=== PATIENT | male | born 1960 | race Caucasian/White ===

== ENCOUNTER 2021-08-05 18:12 | Emergency (ER) | payer MEDICARE, OTHER ==
[~2021-08-05] VITALS: Ht 175.3 cm; Wt 77.1 kg
[2021-08-05 18:55] VITALS: BP 149/106
[2021-08-05 19:32] LABS: Basophils # (auto) 0.1 10 ^3/uL (0-0.2); Basophils % (auto) 1.1 % (0.0-2.0); Eosinophils # (auto) 0 10 ^3/uL (0-0.8); Eosinophils % (auto) 0.5 % (0.0-7.0); Hematocrit 44.1 % (41.0-53.0); Hemoglobin 14.7 g/dL (13.5-17.5); Lymphocytes # (auto) 1.7 10 ^3/uL (0.4-5.4); Lymphocytes % (auto) 22.2 % (10.0-50.0); Mean Corpuscular Hemoglobin 31.2 pg (28.0-32.0); Mean Corpuscular Hgb Conc. 33.3 g/dL (32.0-36.0); Mean Corpuscular Volume 93.7 fL (80.0-100.0); Monocytes % (auto) 12.5 % (0.0-12.0); Neutrophils # (auto) 4.9 10 ^3/uL (1.6-8.6); Neutrophils % (auto) 63.7 % (37.0-80.0); Red Blood Cells 4.71 10^6/uL (4.5-5.90); Red Cell Distribution Width 18.5 % (11.8-14.3); White Blood Cell 7.6 10^3/uL (4.4-10.8)
[2021-08-05 19:52] LABS: Albumin 3.3 g/dL (3.4-5.0); BUN/Creatinine Ratio 15.4; Calcium 8.2 mg/dL (8.5-10.1); Potassium 3.3 mmol/L (3.5-5.1)
[2021-08-05 19:58] LABS: Bilirubin, Total 0.5 mg/dL (0.2-1.0); Total Protein 6.9 g/dL (6.4-8.2)
[2021-08-06] MEDS ORDERED: POTA10TA51 PO (06:47)
[2021-08-06] MEDS ORDERED: OMEP20TA PO (06:47)
[2021-08-06] MEDS ORDERED: OXY5T PO (06:47)
[2021-08-06] MEDS ORDERED: MORP15TA PO (06:47)
[2021-08-06] MEDS ORDERED: HYDR25TA4 PO (06:47)
== END 2021-08-06 00:16 | disposition left against medical advice (07) ==
LOC: EDBD 18:12 → ER 18:18
DX: R07.89 Other chest pain (principal); K59.00 Constipation, unspecified; Z53.21 Procedure and treatment not carried out due to patient leaving prior to being seen by health care provider
CPT/HCPCS: 36415; 71045; 80053; 83735; 84443; 84484; 85025; 93005

== ENCOUNTER 2021-08-05 21:43 | Inpatient (IN) | payer MEDICARE, OTHER ==
[~2021-08-05] VITALS: Ht 172.7 cm; Wt 68.3 kg
[2021-08-05 23:32] LABS: Basophils # (auto) 0 10 ^3/uL (0-0.2); Basophils % (auto) 0.2 % (0.0-2.0); Eosinophils # (auto) 0 10 ^3/uL (0-0.8); Eosinophils % (auto) 0.4 % (0.0-7.0); Hematocrit 42.2 % (41.0-53.0); Hemoglobin 14.1 g/dL (13.5-17.5); Lymphocytes # (auto) 1.5 10 ^3/uL (0.4-5.4); Lymphocytes % (auto) 22.9 % (10.0-50.0); Mean Corpuscular Hemoglobin 31.2 pg (28.0-32.0); Mean Corpuscular Hgb Conc. 33.4 g/dL (32.0-36.0); Mean Corpuscular Volume 93.3 fL (80.0-100.0); Monocytes # (auto) 0.8 10 ^3/uL (0-1.3); Monocytes % (auto) 12.1 % (0.0-12.0); Neutrophils # (auto) 4.3 10 ^3/uL (1.6-8.6); Neutrophils % (auto) 64.4 % (37.0-80.0); Nucleated Red Blood Cells % 0.1 %; Red Blood Cells 4.53 10^6/uL (4.5-5.90); Red Cell Distribution Width 18.2 % (11.8-14.3); White Blood Cell 6.8 10^3/uL (4.4-10.8)
[2021-08-05 23:54] LABS: Albumin 3.1 g/dL (3.4-5.0); Calcium 8.1 mg/dL (8.5-10.1); Potassium 3.4 mmol/L (3.5-5.1)
[2021-08-05 23:56] LABS: BUN/Creatinine Ratio 16.7
[2021-08-06 00:01] LABS: Bilirubin, Total 0.5 mg/dL (0.2-1.0); Total Protein 6.6 g/dL (6.4-8.2)
[2021-08-06] MEDS ORDERED: LIDOCAINE 5% TOPICAL PATCH TOP ONE (01:15)
[2021-08-06] MEDS ORDERED: oxyCODONE ER 10 MG TAB PO ONE (03:30)
[2021-08-06] MEDS ORDERED: hydrALAZINE HCL 20 MG/ML VL IV PRN (03:30)
[2021-08-06] MEDS ORDERED: ACETAMINOPHEN 325 MG TAB PO PRN (03:30)
[2021-08-06] MEDS ORDERED: POTASSIUM CHL 20 Meq TABLET PO ONE (03:30)
[2021-08-06] MEDS ORDERED: DOCUSATE SOD 100 MG CAP PO PRN (03:30)
[2021-08-06] MEDS ORDERED: MORPHINE SULFATE INJECTION 2 MG/ML SYRG IV PRN (04:15)
[2021-08-06] MEDS ORDERED: NITROGLYCERIN 0.4 MG SL TAB SL PRN (04:15)
[2021-08-06] MEDS: SODIUM CHLOR 0.9% PF (SALINE LOCK) 10ML VIAL/SYR IV SCH ×3 (06:20→22:19)
[2021-08-06] MEDS: MORPHINE SULFATE 4 MG/ML SYR/VIAL IV PRN ×4 (06:21→20:34)
[2021-08-06] MEDS: ONDANSETRON HCL 4 MG/2 ML VIAL IV PRN ×3 (06:26→20:34)
[2021-08-06 06:31] VITALS: BP 156/98
[2021-08-06] MEDS ORDERED: INFLUENZA QUAD 2021-2022 0.5 ML SYRG IM ONE (06:45)
[2021-08-06] MEDS ORDERED: POTA10TA51 PO (06:47)
[2021-08-06] MEDS ORDERED: OMEP20TA PO (06:47)
[2021-08-06] MEDS ORDERED: HYDR25TA4 PO (06:47)
[2021-08-06] MEDS ORDERED: OXY5T PO (06:47)
[2021-08-06] MEDS ORDERED: MORP15TA PO (06:47)
[2021-08-06 09:11] VITALS: BP 153/93
[2021-08-06] MEDS: FAMOTIDINE (10MG/ML) 2ML VL IV SCH ×2 (09:27→22:19)
[2021-08-06] MEDS: ASPirin 81 mg TAB PO SCH (09:27)
[2021-08-06] MEDS: ENOXAPARIN SOD 40 MG/0.4 ML SYRINGE SC SCH (09:27)
[2021-08-06 11:50] LABS: Basophils # (auto) 0.1 10 ^3/uL (0-0.2); Basophils % (auto) 1.3 % (0.0-2.0); Eosinophils # (auto) 0 10 ^3/uL (0-0.8); Eosinophils % (auto) 0.5 % (0.0-7.0); Hematocrit 40.9 % (41.0-53.0); Hemoglobin 13.9 g/dL (13.5-17.5); Lymphocytes % (auto) 16.9 % (10.0-50.0); Mean Corpuscular Hemoglobin 31.7 pg (28.0-32.0); Mean Corpuscular Volume 93.2 fL (80.0-100.0); Monocytes # (auto) 0.8 10 ^3/uL (0-1.3); Monocytes % (auto) 12.8 % (0.0-12.0); Neutrophils % (auto) 68.5 % (37.0-80.0); Nucleated Red Blood Cells % 0.1 %; Red Blood Cells 4.38 10^6/uL (4.5-5.90); Red Cell Distribution Width 18.6 % (11.8-14.3); White Blood Cell 5.9 10^3/uL (4.4-10.8)
[2021-08-06 12:05] LABS: Amphetamine Screen, Urine NEGATIVE (NEGATIVE); Barbiturate Scree,Urine NEGATIVE (NEGATIVE); Benzodiazephine Screen, Urine NEGATIVE (NEGATIVE); Cannabinoid Screen, Urine POSITIVE (NEGATIVE); Cocaine Screen, Urine NEGATIVE (NEGATIVE); Phencyclidine Screen, Urine NEGATIVE (NEGATIVE)
[2021-08-06 12:06] LABS: Potassium 3.6 mmol/L (3.5-5.1)
[2021-08-06 12:13] LABS: Albumin 3.4 g/dL (3.4-5.0); BUN/Creatinine Ratio 16.7; Bilirubin, Total 0.9 mg/dL (0.2-1.0); Calcium 8.4 mg/dL (8.5-10.1); Total Protein 6.7 g/dL (6.4-8.2)
[2021-08-06 12:13] LABS: Opiate Scree,Urine POSITIVE (NEGATIVE)
[2021-08-06 13:09] VITALS: BP 154/91
[2021-08-06] MEDS ORDERED: chlordiazePOXIDE HCL 5 MG CAP PO PRN (15:00)
[2021-08-06 17:00] VITALS: BP 168/95
[2021-08-06 22:00] VITALS: BP 158/83
[2021-08-06] MEDS: METOPROLOL TARTRATE 25 MG TAB PO SCH (22:20)
[2021-08-07] MEDS: MORPHINE SULFATE 4 MG/ML SYR/VIAL IV PRN ×5 (00:51→21:08)
[2021-08-07] MEDS: ONDANSETRON HCL 4 MG/2 ML VIAL IV PRN ×3 (00:51→21:08)
[2021-08-07 05:00] VITALS: BP 150/88
[2021-08-07] MEDS: SODIUM CHLOR 0.9% PF (SALINE LOCK) 10ML VIAL/SYR IV SCH ×3 (05:36→21:06)
[2021-08-07 06:38] LABS: Basophils # (auto) 0 10 ^3/uL (0-0.2); Basophils % (auto) 0.8 % (0.0-2.0); Eosinophils # (auto) 0.1 10 ^3/uL (0-0.8); Eosinophils % (auto) 1.3 % (0.0-7.0); Hematocrit 36.9 % (41.0-53.0); Hemoglobin 12.7 g/dL (13.5-17.5); Lymphocytes # (auto) 0.9 10 ^3/uL (0.4-5.4); Lymphocytes % (auto) 20.2 % (10.0-50.0); Mean Corpuscular Hemoglobin 32.4 pg (28.0-32.0); Mean Corpuscular Hgb Conc. 34.6 g/dL (32.0-36.0); Mean Corpuscular Volume 93.8 fL (80.0-100.0); Monocytes # (auto) 0.5 10 ^3/uL (0-1.3); Monocytes % (auto) 10.9 % (0.0-12.0); Neutrophils % (auto) 66.8 % (37.0-80.0); Red Blood Cells 3.93 10^6/uL (4.5-5.90); Red Cell Distribution Width 17.8 % (11.8-14.3); White Blood Cell 4.6 10^3/uL (4.4-10.8)
[2021-08-07 07:02] LABS: Potassium 3.7 mmol/L (3.5-5.1)
[2021-08-07 07:09] LABS: Albumin 2.8 g/dL (3.4-5.0); BUN/Creatinine Ratio 16.1; Bilirubin, Total 1.2 mg/dL (0.2-1.0); Calcium 8.2 mg/dL (8.5-10.1)
[2021-08-07 07:14] LABS: Cholesterol 254 mg/dL (< 200); HDL Cholesterol 185 mg/dL (40-59); LDL Cholesterol 48 mg/dL (< 100); Triglycerides 46 mg/dL (< 150)
[2021-08-07] MEDS: HYDROcodone-ACET 5/325MG TAB PO PRN (08:19)
[2021-08-07 08:41] LABS: Urine Bacteria FEW /hpf (None Seen); Urine Blood 2+ /uL (Negative); Urine Mucus FEW (None Seen); Urine Specific Gravity 1.017 (1.001-1.035); Urine WBC 304 /hpf (0 - 3)
[2021-08-07 09:00] VITALS: BP 147/91
[2021-08-07] MEDS: ASPirin 81 mg TAB PO SCH (09:24)
[2021-08-07] MEDS: FAMOTIDINE (10MG/ML) 2ML VL IV SCH ×2 (09:24→21:06)
[2021-08-07] MEDS: MULTIPLE VITAMINS W/ MINERALS TAB PO SCH (09:25)
[2021-08-07] MEDS: METOPROLOL TARTRATE 25 MG TAB PO SCH ×2 (09:25→21:07)
[2021-08-07] MEDS: LOSARTAN POTASSIUM 25 MG TAB PO SCH (09:25)
[2021-08-07] MEDS: ENOXAPARIN SOD 40 MG/0.4 ML SYRINGE SC SCH (09:26)
[2021-08-07 11:03] LABS: Folate (Folic Acid) 17.29 ng/mL (5.38-24)
[2021-08-07 13:46] LABS: Hepatitis A Ab IgM Negative
[2021-08-07 14:01] LABS: Hepatitis B Core IgM Negative
[2021-08-07 14:22] LABS: Hepatitis C Antibody Negative (Negative)
[2021-08-07 17:29] VITALS: BP 149/89
[2021-08-07 22:27] VITALS: BP 163/85
[2021-08-08] VITALS (9 sets, daily range): BP systolic 122–167; BP diastolic 79–112
[2021-08-08] MEDS: MORPHINE SULFATE 4 MG/ML SYR/VIAL IV PRN ×2 (01:19→05:46)
[2021-08-08] MEDS: ONDANSETRON HCL 4 MG/2 ML VIAL IV PRN ×2 (01:20→05:45)
[2021-08-08] MEDS: SODIUM CHLOR 0.9% PF (SALINE LOCK) 10ML VIAL/SYR IV SCH ×3 (05:44→22:25)
[2021-08-08 06:28] LABS: INR 0.97 (0.9-1.15); Partial Thromboplastin Time 29.8 sec (23.6-33.0)
[2021-08-08 06:34] LABS: Albumin 3.4 g/dL (3.4-5.0); Calcium 8.7 mg/dL (8.5-10.1); Potassium 3.3 mmol/L (3.5-5.1)
[2021-08-08 06:37] LABS: BUN/Creatinine Ratio 11.1; Bilirubin, Total 0.8 mg/dL (0.2-1.0); Total Protein 7.2 g/dL (6.4-8.2)
[2021-08-08] MEDS: HYDROcodone-ACET 5/325MG TAB PO PRN (09:19)
[2021-08-08] MEDS: FAMOTIDINE (10MG/ML) 2ML VL IV SCH ×2 (09:30→22:25)
[2021-08-08] MEDS: ASPirin 81 mg TAB PO SCH (09:31)
[2021-08-08] MEDS: MULTIPLE VITAMINS W/ MINERALS TAB PO SCH (09:32)
[2021-08-08] MEDS: ENOXAPARIN SOD 40 MG/0.4 ML SYRINGE SC SCH (09:33)
[2021-08-08] MEDS: METOPROLOL TARTRATE 25 MG TAB PO SCH ×2 (14:02→22:32)
[2021-08-08] MEDS: LOSARTAN POTASSIUM 25 MG TAB PO SCH (14:02)
[2021-08-08] MEDS ORDERED: LORazepam 2MG/ML-1ML VIAL IM ONE (14:21)
[2021-08-08] MEDS ORDERED: LORazepam 2MG/ML-1ML VIAL ONE (14:21)
[2021-08-08] MEDS ORDERED: LORazepam 2MG/ML-1ML VIAL IV ONE (14:21)
[2021-08-08] MEDS ORDERED: IODIXANOL 320MG/ML 100ML BTL IV ONE (15:04)
[2021-08-08] MEDS ORDERED: LIDOCAINE 2%HCL (LOCAL ANESTH.) INJ 20ML MDV ONE (15:04)
[2021-08-08] MEDS ORDERED: ANGIOMAX 250 MG VIAL IV ONE (15:11)
[2021-08-08] MEDS ORDERED: SODIUM CHL 0.9% 50 ML ONE (15:11)
[2021-08-08] MEDS ORDERED: fentaNYL CITRATE 100 MCG/2 ML VL ONE (15:11)
[2021-08-08] MEDS ORDERED: MIDAZOLAM HCL 2MG/2ML 2ml VIAL (1mg/ml) ONE (15:11)
[2021-08-08] MEDS ORDERED: diphenhdrAMINE HCL 50 MG/1 ML VL ONE (15:28)
[2021-08-08] MEDS ORDERED: FLUMAZENIL 0.1 MG/ML INJ 10ML MDV IV ONE (15:38)
[2021-08-08] MEDS ORDERED: HALOPERIDOL LACTATE 5 MG/ML INJ VIAL ONE (15:42)
[2021-08-08] MEDS ORDERED: HALOPERIDOL LACTATE 5 MG/ML INJ VIAL IM PRN (17:45)
[2021-08-08] MEDS ORDERED: cefTRIAXone 1GM/50ML D5W 50 ML IV ONE (18:30)
[2021-08-08] MEDS: LORazepam 2MG/ML-1ML VIAL IV PRN (19:49)
[2021-08-08] MEDS ORDERED: CIPROFLOXACIN HCL 500 MG TAB PO ONE (20:00)
[2021-08-09] MEDS: MORPHINE SULFATE 4 MG/ML SYR/VIAL IV PRN ×3 (01:09→23:11)
[2021-08-09] MEDS: ONDANSETRON HCL 4 MG/2 ML VIAL IV PRN (01:10)
[2021-08-09] MEDS: LORazepam 2MG/ML-1ML VIAL IV PRN (02:00)
[2021-08-09 05:00] VITALS: BP 155/81
[2021-08-09] MEDS: SODIUM CHLOR 0.9% PF (SALINE LOCK) 10ML VIAL/SYR IV SCH ×3 (05:20→22:19)
[2021-08-09 06:40] LABS: Potassium 3.3 mmol/L (3.5-5.1)
[2021-08-09 06:45] LABS: Albumin 2.8 g/dL (3.4-5.0); Bilirubin, Total 0.9 mg/dL (0.2-1.0); Calcium 8.6 mg/dL (8.5-10.1)
[2021-08-09 06:50] LABS: Total Protein 6.2 g/dL (6.4-8.2)
[2021-08-09 09:00] VITALS: BP 113/77
[2021-08-09] MEDS ORDERED: cefTRIAXone 1GM/50ML D5W 50 ML IV SCH (09:00)
[2021-08-09] MEDS: MULTIPLE VITAMINS W/ MINERALS TAB PO SCH (09:27)
[2021-08-09] MEDS: CIPROFLOXACIN HCL 500 MG TAB PO SCH ×2 (09:27→22:19)
[2021-08-09] MEDS: FAMOTIDINE (10MG/ML) 2ML VL IV SCH (09:28)
[2021-08-09] MEDS ORDERED: HALOPERIDOL LACTATE 5 MG/ML INJ VIAL IM ONE (10:15)
[2021-08-09] MEDS ORDERED: FLUMAZENIL 0.1 MG/ML INJ 10ML MDV IV ONE (10:15)
[2021-08-09] MEDS: ASPirin 81 mg TAB PO SCH (10:45)
[2021-08-09] MEDS: FOLIC ACID 1 MG TAB PO SCH (10:45)
[2021-08-09] MEDS: LOSARTAN POTASSIUM 25 MG TAB PO SCH (10:45)
[2021-08-09] MEDS: THIAMINE HCL 100 MG TAB PO SCH (10:45)
[2021-08-09] MEDS: METOPROLOL TARTRATE 25 MG TAB PO SCH ×2 (10:46→22:20)
[2021-08-09] MEDS: ENOXAPARIN SOD 40 MG/0.4 ML SYRINGE SC SCH (10:46)
[2021-08-09 13:00] VITALS: BP 154/86
[2021-08-09 17:00] VITALS: BP 136/72
[2021-08-09] MEDS: chlordiazePOXIDE HCL 25 MG CAP PO SCH ×2 (18:00→18:41)
[2021-08-09 22:00] VITALS: BP 109/87
[2021-08-10] MEDS: chlordiazePOXIDE HCL 25 MG CAP PO SCH ×4 (00:49→17:46)
[2021-08-10] MEDS: MORPHINE SULFATE 4 MG/ML SYR/VIAL IV PRN ×5 (04:35→22:16)
[2021-08-10 05:00] VITALS: BP 134/74
[2021-08-10] MEDS: SODIUM CHLOR 0.9% PF (SALINE LOCK) 10ML VIAL/SYR IV SCH ×3 (05:47→20:51)
[2021-08-10 06:19] LABS: Albumin 2.9 g/dL (3.4-5.0); BUN/Creatinine Ratio 16.7; Calcium 8.5 mg/dL (8.5-10.1); Potassium 3.3 mmol/L (3.5-5.1)
[2021-08-10 06:22] LABS: Bilirubin, Total 0.8 mg/dL (0.2-1.0); Total Protein 6.2 g/dL (6.4-8.2)
[2021-08-10 08:28] VITALS: BP 141/90
[2021-08-10] MEDS: FOLIC ACID 1 MG TAB PO SCH (08:55)
[2021-08-10] MEDS: ASPirin 81 mg TAB PO SCH (08:55)
[2021-08-10] MEDS: THIAMINE HCL 100 MG TAB PO SCH (08:56)
[2021-08-10] MEDS: CIPROFLOXACIN HCL 500 MG TAB PO SCH ×2 (08:56→20:51)
[2021-08-10] MEDS: LOSARTAN POTASSIUM 25 MG TAB PO SCH (08:57)
[2021-08-10] MEDS: METOPROLOL TARTRATE 25 MG TAB PO SCH ×2 (08:57→22:14)
[2021-08-10] MEDS: MULTIPLE VITAMINS W/ MINERALS TAB PO SCH (08:58)
[2021-08-10] MEDS: ENOXAPARIN SOD 40 MG/0.4 ML SYRINGE SC SCH (08:58)
[2021-08-10] MEDS ORDERED: traMADol HCL 50 MG TAB PO PRN (09:00)
[2021-08-10 13:00] VITALS: BP 137/82
[2021-08-10] MEDS: LORazepam 2MG/ML-1ML VIAL IV PRN (15:41)
[2021-08-10 16:22] VITALS: BP 132/76
[2021-08-10 21:57] VITALS: BP 142/88
[2021-08-11] MEDS: chlordiazePOXIDE HCL 25 MG CAP PO SCH ×3 (00:04→12:10)
[2021-08-11] MEDS: MORPHINE SULFATE 4 MG/ML SYR/VIAL IV PRN ×3 (02:11→13:00)
[2021-08-11 04:46] VITALS: BP 136/78
[2021-08-11] MEDS: SODIUM CHLOR 0.9% PF (SALINE LOCK) 10ML VIAL/SYR IV SCH ×2 (05:29→12:57)
[2021-08-11 06:28] LABS: Potassium 3.2 mmol/L (3.5-5.1)
[2021-08-11 06:46] LABS: Albumin 2.7 g/dL (3.4-5.0); BUN/Creatinine Ratio 20.7; Bilirubin, Total 0.5 mg/dL (0.2-1.0); Calcium 8.2 mg/dL (8.5-10.1)
[2021-08-11 07:00] LABS: Cholesterol 210 mg/dL (< 200)
[2021-08-11 07:04] LABS: HDL Cholesterol 122 mg/dL (40-59); LDL Cholesterol 64 mg/dL (< 100); Triglycerides 62 mg/dL (< 150)
[2021-08-11] MEDS: ASPirin 81 mg TAB PO SCH (08:02)
[2021-08-11] MEDS: THIAMINE HCL 100 MG TAB PO SCH (08:03)
[2021-08-11] MEDS: FOLIC ACID 1 MG TAB PO SCH (08:03)
[2021-08-11] MEDS: CIPROFLOXACIN HCL 500 MG TAB PO SCH (08:04)
[2021-08-11] MEDS: METOPROLOL TARTRATE 25 MG TAB PO SCH (08:07)
[2021-08-11] MEDS: MULTIPLE VITAMINS W/ MINERALS TAB PO SCH (08:08)
[2021-08-11 09:00] VITALS: BP 137/91
[2021-08-11] MEDS ORDERED: LOSARTAN POTASSIUM 25 MG TAB PO SCH (10:00)
[2021-08-11] MEDS ORDERED: FOLI1TAB6 PO (10:07)
[2021-08-11] MEDS ORDERED: CIP500T PO (10:07)
[2021-08-11] MEDS ORDERED: MET25T PO (10:07)
[2021-08-11] MEDS ORDERED: LOSA-69 PO (10:07)
[2021-08-11] MEDS ORDERED: ASPI1TAB20 PO (10:07)
[2021-08-11] MEDS: ENOXAPARIN SOD 40 MG/0.4 ML SYRINGE SC SCH (12:09)
[2021-08-11] MEDS ORDERED: POTASSIUM CHL 20 Meq TABLET PO ONE (12:30)
[2021-08-11 13:00] VITALS: BP 122/82
[2021-08-11] MEDS: ONDANSETRON HCL 4 MG/2 ML VIAL IV PRN (13:01)
[2021-08-11] MEDS ORDERED: PNEUMOCOCCAL VACC POLYS 25 MCG/0.5 ML VIAL IM ONE (13:30)
[2021-08-11 13:33] VITALS: BP 130/78
[2021-08-11] MEDS ORDERED: INFLUENZA QUAD 2021-2022 0.5 ML SYRG IM ONE (13:45)
== END 2021-08-11 15:22 | disposition home health service (06) | DRG 281 ==
LOC: EDBD 21:43 → ER 21:45 → TELE 08-06 04:08 → TELE-CENTR 08-06 05:24
PROVIDERS: ADMIT Nurse Practitioner Family; ATTEND Internal Medicine
PROC: 3E0234Z Introduction of Serum, Toxoid and Vaccine into Muscle, Percutaneous Approach (ICD-10-PCS; principal; 2021-08-11)
DX: I21.4 Non-ST elevation (NSTEMI) myocardial infarction (principal); F10.239 Alcohol dependence with withdrawal, unspecified; E87.0 Hyperosmolality and hypernatremia; N39.0 Urinary tract infection, site not specified; J98.11 Atelectasis; E87.6 Hypokalemia; I10 Essential (primary) hypertension; I70.0 Atherosclerosis of aorta; G89.29 Other chronic pain; M54.9 Dorsalgia, unspecified; E88.09 Other disorders of plasma-protein metabolism, not elsewhere classified; Z20.822 Contact with and (suspected) exposure to COVID-19; E78.5 Hyperlipidemia, unspecified; Z86.73 Personal history of transient ischemic attack (TIA), and cerebral infarction without residual deficits; Z23 Encounter for immunization; Z53.8 Procedure and treatment not carried out for other reasons; K76.0 Fatty (change of) liver, not elsewhere classified; Y90.1 Blood alcohol level of 20-39 mg/100 ml
CPT/HCPCS: 36415; 71045; 71250; 76705; 80053; 80061; 80074; 80307; 81001; 82306; 82607; 82746; 82962; 82977; 83735; 83880; 84443; 84484; 85025; 85610; 85730; 87040; 87086; 87088; 87186; 87426; 93005; 93306; 96374; 96375; 99152; G0378; J2250; J2405; J3490; Q9967

== ENCOUNTER 2021-08-11 21:06 | Inpatient (IN) | payer MEDICARE, OTHER ==
[~2021-08-11] VITALS: Ht 172.7 cm; Wt 72.8 kg
[~2021-08-11 21:06] MED LIST: ASPI1TAB20 PO; CIP500T PO; FOLI1TAB6 PO; HYDR25TA4 PO; LOSA-69 PO; MET25T PO; MORP15TA PO; OMEP20TA PO; OXY5T PO; POTA10TA51 PO
[2021-08-11] MEDS ORDERED: ONDANSETRON HCL 4 MG/2 ML VIAL IV ONE (21:45)
[2021-08-11] MEDS ORDERED: MORPHINE SULFATE 4 MG/ML SYR/VIAL IV ONE (21:45)
[2021-08-11 22:35] LABS: Basophils # (auto) 0 10 ^3/uL (0-0.2); Basophils % (auto) 0.6 % (0.0-2.0); Eosinophils # (auto) 0.1 10 ^3/uL (0-0.8); Eosinophils % (auto) 2.9 % (0.0-7.0); Hematocrit 34.6 % (41.0-53.0); Hemoglobin 11.8 g/dL (13.5-17.5); Lymphocytes # (auto) 0.5 10 ^3/uL (0.4-5.4); Mean Corpuscular Hemoglobin 32.2 pg (28.0-32.0); Mean Corpuscular Volume 94.5 fL (80.0-100.0); Monocytes # (auto) 0.8 10 ^3/uL (0-1.3); Monocytes % (auto) 17.7 % (0.0-12.0); Neutrophils % (auto) 66.8 % (37.0-80.0); Red Blood Cells 3.66 10^6/uL (4.5-5.90); Red Cell Distribution Width 17.5 % (11.8-14.3); White Blood Cell 4.6 10^3/uL (4.4-10.8)
[2021-08-11 22:53] LABS: Albumin 2.8 g/dL (3.4-5.0); Calcium 8.3 mg/dL (8.5-10.1); Magnesium 1.8 mg/dL (1.6-2.6); Potassium 3.5 mmol/L (3.5-5.1)
[2021-08-11 22:59] LABS: BUN/Creatinine Ratio 16.8; Bilirubin, Total 0.4 mg/dL (0.2-1.0)
[2021-08-11 23:00] LABS: Partial Thromboplastin Time 25.7 sec (23.6-33.0)
[2021-08-11] MEDS ORDERED: DOCUSATE SOD 100 MG CAP PO PRN (23:30)
[2021-08-11] MEDS ORDERED: MORPHINE SULFATE INJECTION 2 MG/ML SYRG IV PRN (23:30)
[2021-08-11] MEDS ORDERED: HYDROcodone-ACET 5/325MG TAB PO PRN (23:30)
[2021-08-11] MEDS ORDERED: ONDANSETRON HCL 4 MG/2 ML VIAL IV PRN (23:30)
[2021-08-11] MEDS ORDERED: ACETAMINOPHEN 325 MG TAB PO PRN (23:30)
[2021-08-12] MEDS: NITROGLYCERIN 0.4 MG SL TAB SL PRN (02:02)
[2021-08-12 02:25] LABS: Urine Bacteria FEW /hpf (None Seen); Urine Blood Negative /uL (Negative); Urine Hyaline Cast MANY /lpf (0 - 2); Urine Mucus FEW (None Seen); Urine Specific Gravity 1.021 (1.001-1.035); Urine WBC 6 /hpf (0 - 3)
[2021-08-12 03:47] VITALS: BP 113/81
[2021-08-12 05:00] VITALS: BP 113/81
[2021-08-12] MEDS: MORPHINE SULFATE 4 MG/ML SYR/VIAL IV PRN ×2 (06:39→11:11)
[2021-08-12 09:00] VITALS: BP 122/70
[2021-08-12] MEDS: FAMOTIDINE (10MG/ML) 2ML VL IV SCH (10:57)
[2021-08-12] MEDS: ASPirin 81 mg TAB PO SCH (10:58)
[2021-08-12] MEDS: HEPARIN SODIUM (PORCINE) 5000 UNITS/ML 1ML VIAL SC SCH ×2 (11:11→22:00)
[2021-08-12] MEDS: METOPROLOL TARTRATE 25 MG TAB PO SCH ×2 (11:12→23:08)
[2021-08-12 11:27] LABS: Hematocrit 33.8 % (41.0-53.0); Hemoglobin 11.4 g/dL (13.5-17.5); Mean Corpuscular Hemoglobin 32.4 pg (28.0-32.0); Mean Corpuscular Hgb Conc. 33.9 g/dL (32.0-36.0); Mean Corpuscular Volume 95.7 fL (80.0-100.0); Red Blood Cells 3.53 10^6/uL (4.5-5.90); Red Cell Distribution Width 17.8 % (11.8-14.3); White Blood Cell 3.4 10^3/uL (4.4-10.8)
[2021-08-12] MEDS ORDERED: traMADol HCL 50 MG TAB PO PRN ×4 (11:30→11:45)
[2021-08-12 11:33] LABS: Calcium 8.1 mg/dL (8.5-10.1); Potassium 3.6 mmol/L (3.5-5.1)
[2021-08-12 11:39] LABS: Basophils % (manual) 0 (0.0-2.0); Blast Cells 0; Metamyelocytes % 0; Myelocytes % 0; Promyelocytes % 0
[2021-08-12 11:42] LABS: Albumin 2.5 g/dL (3.4-5.0); BUN/Creatinine Ratio 19.1; Bilirubin, Total 0.4 mg/dL (0.2-1.0); Total Protein 5.5 g/dL (6.4-8.2)
[2021-08-12] MEDS ORDERED: ACETAMINOPHEN 325 MG TAB PO PRN ×2 (12:00→16:45)
[2021-08-12] MEDS ORDERED: IOHEXOL 350 MG/ML 100ML IJ ONE (12:23)
[2021-08-12 12:27] LABS: Band Neutrophils % (manual) 1; Eosinophils % (manual) 3 (0-7); Lymphocytes % (manual) 19 (10.0-50.0); Monocytes % (manual) 14 (0-12); Reactive Lymphocytes 1
[2021-08-12 13:00] VITALS: BP 127/75
[2021-08-12 17:00] VITALS: BP 149/86
[2021-08-12] MEDS: HYDROcodone-ACET 7.5/325MG TAB PO PRN ×2 (17:04→23:21)
[2021-08-12] MEDS ORDERED: ATORVASTATIN 20 MG TAB PO SCH (22:00)
[2021-08-12 22:08] VITALS: BP 114/71
[2021-08-13] MEDS: METOPROLOL TARTRATE 25 MG TAB PO SCH ×2 (00:08→10:11)
[2021-08-13 04:52] VITALS: BP 105/73
[2021-08-13 05:15] LABS: Hematocrit 34.4 % (41.0-53.0); Hemoglobin 11.5 g/dL (13.5-17.5); Mean Corpuscular Hemoglobin 31.9 pg (28.0-32.0); Mean Corpuscular Hgb Conc. 33.4 g/dL (32.0-36.0); Mean Corpuscular Volume 95.6 fL (80.0-100.0); Red Cell Distribution Width 17.8 % (11.8-14.3); White Blood Cell 3.2 10^3/uL (4.4-10.8)
[2021-08-13 05:17] LABS: Basophils % (manual) 0 (0.0-2.0); Blast Cells 0; Metamyelocytes % 0; Myelocytes % 0; Promyelocytes % 0; Reactive Lymphocytes 0
[2021-08-13 05:43] LABS: Albumin 2.7 g/dL (3.4-5.0); Calcium 8.6 mg/dL (8.5-10.1); Potassium 4.5 mmol/L (3.5-5.1)
[2021-08-13 05:47] LABS: BUN/Creatinine Ratio 17.5; Bilirubin, Total 0.3 mg/dL (0.2-1.0); Total Protein 5.7 g/dL (6.4-8.2)
[2021-08-13 06:00] LABS: INR 1.01 (0.9-1.15)
[2021-08-13 06:39] LABS: Band Neutrophils % (manual) 2; Eosinophils % (manual) 6 (0-7); Lymphocytes % (manual) 17 (10.0-50.0); Monocytes % (manual) 7 (0-12)
[2021-08-13 09:00] VITALS: BP 122/78
[2021-08-13] MEDS: FAMOTIDINE (10MG/ML) 2ML VL IV SCH (10:11)
[2021-08-13] MEDS: HYDROcodone-ACET 7.5/325MG TAB PO PRN ×2 (10:12→16:37)
[2021-08-13] MEDS: ASPirin 81 mg TAB PO SCH (10:12)
[2021-08-13] MEDS: HEPARIN SODIUM (PORCINE) 5000 UNITS/ML 1ML VIAL SC SCH ×2 (10:20→21:25)
[2021-08-13 12:00] VITALS: BP 125/77
[2021-08-13 16:00] VITALS: BP 109/73
[2021-08-13] MEDS: MORPHINE SULF 15mg ER tab PO SCH (18:42)
[2021-08-13 22:00] VITALS: BP 104/68
[2021-08-13] MEDS ORDERED: MORPHINE SULF 15mg ER tab PO SCH (22:00)
[2021-08-14 05:00] VITALS: BP 106/71
[2021-08-14 06:34] LABS: Basophils # (auto) 0 10 ^3/uL (0-0.2); Basophils % (auto) 1.5 % (0.0-2.0); Eosinophils # (auto) 0.2 10 ^3/uL (0-0.8); Eosinophils % (auto) 6.2 % (0.0-7.0); Hemoglobin 11.5 g/dL (13.5-17.5); Mean Corpuscular Hemoglobin 32.5 pg (28.0-32.0); Mean Corpuscular Hgb Conc. 33.8 g/dL (32.0-36.0); Mean Corpuscular Volume 96.1 fL (80.0-100.0); Nucleated Red Blood Cells % 0.1 %; Red Blood Cells 3.53 10^6/uL (4.5-5.90); Red Cell Distribution Width 17.9 % (11.8-14.3); White Blood Cell 3.1 10^3/uL (4.4-10.8)
[2021-08-14 06:51] LABS: Lymphocytes % (auto) 32.6 % (10.0-50.0); Monocytes # (auto) 0.4 10 ^3/uL (0-1.3); Monocytes % (auto) 17.7 % (0.0-12.0); Neutrophils # (auto) 1.4 10 ^3/uL (1.6-8.6)
[2021-08-14 08:00] VITALS: BP 128/90
[2021-08-14] MEDS: FAMOTIDINE (10MG/ML) 2ML VL IV SCH (10:11)
[2021-08-14] MEDS: ASPirin 81 mg TAB PO SCH (10:11)
[2021-08-14] MEDS: MORPHINE SULF 15mg ER tab PO SCH ×2 (10:11→21:42)
[2021-08-14] MEDS: HEPARIN SODIUM (PORCINE) 5000 UNITS/ML 1ML VIAL SC SCH ×2 (10:12→21:43)
[2021-08-14 12:00] VITALS: BP 151/80
[2021-08-14 12:15] LABS: Hepatitis B Surface Antibody Negative
[2021-08-14 12:39] LABS: Hepatitis A Total Antibody Negative
[2021-08-14 14:27] LABS: Hepatitis C Antibody Negative (Negative)
[2021-08-14 16:00] VITALS: BP 121/90
[2021-08-14] MEDS: METOPROLOL TARTRATE 25 MG TAB PO SCH (21:41)
[2021-08-14 22:00] VITALS: BP 134/71
[2021-08-15 05:00] VITALS: BP 128/76
[2021-08-15 08:59] VITALS: BP 158/82
[2021-08-15] MEDS: FAMOTIDINE (10MG/ML) 2ML VL IV SCH (10:07)
[2021-08-15] MEDS: ASPirin 81 mg TAB PO SCH (10:07)
[2021-08-15] MEDS: MORPHINE SULF 15mg ER tab PO SCH ×2 (10:08→21:49)
[2021-08-15] MEDS: METOPROLOL TARTRATE 25 MG TAB PO SCH ×2 (10:10→21:50)
[2021-08-15] MEDS: HEPARIN SODIUM (PORCINE) 5000 UNITS/ML 1ML VIAL SC SCH ×2 (11:28→21:54)
[2021-08-15] MEDS: FOLIC ACID 1 MG, MULTIPLE VITAMIN 10 ML, MAGNESIUM SULF SDV 50% 8 MEQ, THIAMINE INJ 100... INJ SCH ×5 (12:42)
[2021-08-15 12:48] VITALS: BP 104/62
[2021-08-15] MEDS ORDERED: LIDOCAINE 2%HCL (LOCAL ANESTH.) INJ 20ML MDV ONE (13:12)
[2021-08-15] MEDS ORDERED: IOHEXOL 350 MG/ML 100ML IJ ONE (13:12)
[2021-08-15] MEDS ORDERED: ANGIOMAX 250 MG VIAL IV ONE (13:13)
[2021-08-15] MEDS ORDERED: SODIUM CHL 0.9% 0 ML ONE (13:13)
[2021-08-15 16:59] VITALS: BP 127/78
[2021-08-15 22:00] VITALS: BP 114/77
[2021-08-16 05:00] VITALS: BP 128/72
[2021-08-16 06:00] LABS: Hematocrit 41.3 % (41.0-53.0); Hemoglobin 13.9 g/dL (13.5-17.5); Mean Corpuscular Hgb Conc. 33.7 g/dL (32.0-36.0); Mean Corpuscular Volume 95.1 fL (80.0-100.0); Red Blood Cells 4.34 10^6/uL (4.5-5.90); Red Cell Distribution Width 17.7 % (11.8-14.3)
[2021-08-16 06:07] LABS: Basophils % (manual) 0 (0.0-2.0); Blast Cells 0; Metamyelocytes % 0; Promyelocytes % 0
[2021-08-16 06:37] LABS: Albumin 3.5 g/dL (3.4-5.0); BUN/Creatinine Ratio 15.5; Bilirubin, Total 0.3 mg/dL (0.2-1.0); Calcium 9.2 mg/dL (8.5-10.1); Total Protein 6.9 g/dL (6.4-8.2)
[2021-08-16 08:30] LABS: Band Neutrophils % (manual) 1; Lymphocytes % (manual) 33 (10.0-50.0); Monocytes % (manual) 16 (0-12)
[2021-08-16 08:31] LABS: Eosinophils % (manual) 10 (0-7); Myelocytes % 1; Reactive Lymphocytes 3
[2021-08-16 09:00] VITALS: BP 120/90
[2021-08-16] MEDS: ASPirin 81 mg TAB PO SCH (09:47)
[2021-08-16] MEDS: METOPROLOL TARTRATE 25 MG TAB PO SCH ×2 (09:47→22:13)
[2021-08-16] MEDS: FAMOTIDINE (10MG/ML) 2ML VL IV SCH (09:47)
[2021-08-16] MEDS: MORPHINE SULF 15mg ER tab PO SCH ×2 (09:48→22:13)
[2021-08-16 13:00] VITALS: BP 112/66
[2021-08-16] MEDS: HEPARIN SODIUM (PORCINE) 5000 UNITS/ML 1ML VIAL SC SCH ×2 (13:12→22:17)
[2021-08-16 16:37] VITALS: BP 126/76
[2021-08-16] MEDS: FOLIC ACID 1 MG, MULTIPLE VITAMIN 10 ML, MAGNESIUM SULF SDV 50% 8 MEQ, THIAMINE INJ 100... INJ SCH ×5 (19:05)
[2021-08-16] MEDS: NITROGLYCERIN 0.4 MG SL TAB SL PRN ×3 (21:20→21:33)
[2021-08-16 21:56] VITALS: BP 120/87
[2021-08-17 04:57] VITALS: BP 130/75
[2021-08-17 08:59] VITALS: BP 107/83
[2021-08-17] MEDS: METOPROLOL TARTRATE 25 MG TAB PO SCH (10:04)
[2021-08-17] MEDS: FAMOTIDINE (10MG/ML) 2ML VL IV SCH (10:04)
[2021-08-17] MEDS: MORPHINE SULF 15mg ER tab PO SCH (10:04)
[2021-08-17] MEDS: ASPirin 81 mg TAB PO SCH (10:04)
[2021-08-17] MEDS: HEPARIN SODIUM (PORCINE) 5000 UNITS/ML 1ML VIAL SC SCH (10:05)
[2021-08-17 10:43] VITALS: BP 120/63
[2021-08-17] MEDS: FOLIC ACID 1 MG, MULTIPLE VITAMIN 10 ML, MAGNESIUM SULF SDV 50% 8 MEQ, THIAMINE INJ 100... INJ SCH ×5 (12:34)
[2021-08-17 13:00] VITALS: BP 110/72
== END 2021-08-17 13:00 | disposition home health service (06) | DRG 432 ==
LOC: EDBD 21:06 → ER 21:10 → TELE 23:16 → TELE-WESTW 08-12 03:47
PROVIDERS: ADMIT Nurse Practitioner Family; ATTEND Family Medicine
PROC: 4A023N7 Measurement of Cardiac Sampling and Pressure, Left Heart, Percutaneous Approach (ICD-10-PCS; principal; 2021-08-15)
PROC: B2111ZZ Fluoroscopy of Multiple Coronary Arteries using Low Osmolar Contrast (ICD-10-PCS; 2021-08-15)
PROC: B2151ZZ Fluoroscopy of Left Heart using Low Osmolar Contrast (ICD-10-PCS; 2021-08-15)
PROC: 4A033BC Measurement of Arterial Pressure, Coronary, Percutaneous Approach (ICD-10-PCS; 2021-08-15)
DX: K70.10 Alcoholic hepatitis without ascites (principal); I21.4 Non-ST elevation (NSTEMI) myocardial infarction; I50.21 Acute systolic (congestive) heart failure; I11.0 Hypertensive heart disease with heart failure; K76.0 Fatty (change of) liver, not elsewhere classified; F10.10 Alcohol abuse, uncomplicated; I25.119 Atherosclerotic heart disease of native coronary artery with unspecified angina pectoris; E88.09 Other disorders of plasma-protein metabolism, not elsewhere classified; R79.89 Other specified abnormal findings of blood chemistry; E78.5 Hyperlipidemia, unspecified; Z20.822 Contact with and (suspected) exposure to COVID-19; Z82.49 Family history of ischemic heart disease and other diseases of the circulatory system; Z83.3 Family history of diabetes mellitus; Z86.73 Personal history of transient ischemic attack (TIA), and cerebral infarction without residual deficits; Z91.19 Patient's noncompliance with other medical treatment and regimen; Z90.49 Acquired absence of other specified parts of digestive tract; Z71.41 Alcohol abuse counseling and surveillance of alcoholic; Z68.23 Body mass index [BMI] 23.0-23.9, adult
CPT/HCPCS: 36415; 71045; 71275; 73090; 80053; 81001; 82150; 82728; 83036; 83690; 83735; 83880; 84132; 84443; 84484; 85007; 85025; 85027; 85379; 85610; 85730; 86704; 86706; 86708; 86803; 87081; 87340; 87426; 93005; 93458; 93571; 96374; 96375; 96376; 97163; 99152; 99291; G0378; J2405; J3490

== ENCOUNTER 2023-08-08 10:56 | Inpatient (IN) | payer MEDICARE, OTHER ==
[~2023-08-08] VITALS: Ht 172.7 cm; Wt 75.2 kg
[~2023-08-08 10:56] MED LIST changes: +FOLI-119 PO; -FOLI1TAB6 PO; -LOSA-69 PO; +LOSA50TA46 PO; -POTA10TA51 PO
[2023-08-08 13:38] LABS: Basophils # (auto) 0 10 ^3/uL (0-0.2); Basophils % (auto) 0.2 % (0.0-2.0); Eosinophils # (auto) 0 10 ^3/uL (0-0.8); Eosinophils % (auto) 0.4 % (0.0-7.0); Hematocrit 40.8 % (41.0-53.0); Hemoglobin 13.4 g/dL (13.5-17.5); Lymphocytes # (auto) 0.8 10 ^3/uL (0.4-5.4); Lymphocytes % (auto) 11.4 % (10.0-50.0); Mean Corpuscular Hemoglobin 31.6 pg (28.0-32.0); Mean Corpuscular Hgb Conc. 32.8 g/dL (32.0-36.0); Mean Corpuscular Volume 96.3 fL (80.0-100.0); Monocytes # (auto) 0.8 10 ^3/uL (0-1.3); Monocytes % (auto) 11.4 % (0.0-12.0); Neutrophils # (auto) 5.7 10 ^3/uL (1.6-8.6); Neutrophils % (auto) 76.6 % (37.0-80.0); Nucleated Red Blood Cells % 0.1 %; Red Blood Cells 4.24 10^6/uL (4.5-5.90); Red Cell Distribution Width 16.4 % (11.8-14.3); White Blood Cell 7.4 10^3/uL (4.4-10.8)
[2023-08-08 13:59] LABS: Alanine Aminotransferase 60 U/L (7-40); Albumin 3.7 g/dL (3.2-4.8); Alkaline Phosphatase 84 U/L (46-116); Anion Gap 8 (5-15); Aspartate Aminotransferase 312 U/L (13-40); Blood Urea Nitrogen 19 mg/dL (9-23); Calcium 8.1 mg/dL (8.5-10.1); Carbon Dioxide 22 mmol/L (20-30); Chloride 110 mmol/L (98-107); Glucose 86 mg/dL (74-106); Potassium 3.9 mmol/L (3.5-5.1); Sodium 140 mmol/L (136-145)
[2023-08-08 14:00] LABS: Bilirubin, Total 0.4 mg/dL (0.2-1.0); Total Protein 5.7 g/dL (5.7-8.2)
[2023-08-08] MEDS ORDERED: HYDROcodone-ACET 10/325MG TAB PO ONE (14:30)
[2023-08-08] MEDS ORDERED: OXYC-998 PO (17:15)
[2023-08-08] MEDS ORDERED: HYDROcodone-ACET 5/325MG TAB PO PRN (17:15)
[2023-08-08] MEDS ORDERED: DOCUSATE SOD 100 MG CAP PO PRN (17:15)
[2023-08-08] MEDS ORDERED: OMEP1CAP70 PO (17:15)
[2023-08-08] MEDS ORDERED: ACETAMINOPHEN 325 MG TAB PO PRN (17:15)
[2023-08-08] MEDS ORDERED: MORP1TAB12 PO (17:15)
[2023-08-08 19:38] VITALS: RESP 14; O2SAT 97
[2023-08-08] MEDS: ONDANSETRON HCL 4 MG/2 ML VIAL IV PRN (20:35)
[2023-08-08] MEDS: MORPHINE SULFATE INJ 2 MG/ml SYRG IV PRN (20:36)
[2023-08-08 21:41] VITALS: BP 122/86; PULSE 76; PULSE 80; RESP 18; TEMP 98.6; O2SAT 96; O2SAT 97
[2023-08-08] MEDS ORDERED: MORPHINE SULF 15mg ER tab PO SCH (22:00)
[2023-08-08] MEDS ORDERED: PATIENTS OWN MEDICATION (Morphine Sulfate 1 TAB) PO SCH (22:00)
[2023-08-08] MEDS: PANTOPRAZOLE 40 MG TAB PO SCH (22:13)
[2023-08-08 22:18] LABS: Urine Bacteria NONE SEEN /hpf (None Seen); Urine Blood 3+ /uL (Negative); Urine Clarity Clear (Clear); Urine Color Yellow (Yellow); Urine Protein, UAD 1+ (Negative); Urine Specific Gravity 1.016 (1.001-1.035); Urine Urobilinogen Normal (Negative); Urine WBC 2 /hpf (0 - 3); Urine pH 6.5 (5.0-8.0)
[2023-08-08 22:19] LABS: Amphetamine Screen, Urine Neg (NEGATIVE); Barbiturate Scree,Urine Neg (NEGATIVE); Benzodiazephine Screen, Urine Neg (NEGATIVE); Cocaine Screen, Urine Neg (NEGATIVE); Opiate Scree,Urine Pos (NEGATIVE)
[2023-08-08 22:20] LABS: Cannabinoid Screen, Urine Pos (NEGATIVE); Phencyclidine Screen, Urine Neg (NEGATIVE)
[2023-08-09] MEDS ORDERED: INFLUENZA QUAD 2023-2024 0.5 ML SYRG IM ONE
[2023-08-09] MEDS ORDERED: PNEUMOCOCCAL VACC POLYS 25 MCG/0.5 ML VIAL IM ONE
[2023-08-09] MEDS: ONDANSETRON HCL 4 MG/2 ML VIAL IV PRN (00:43)
[2023-08-09] MEDS: MORPHINE SULFATE INJ 2 MG/ml SYRG IV PRN ×5 (00:44→20:07)
[2023-08-09 05:00] VITALS: BP 124/81; PULSE 65; RESP 17; TEMP 97.7; O2SAT 97
[2023-08-09 07:34] LABS: Alanine Aminotransferase 54 U/L (7-40); Alkaline Phosphatase 68 U/L (46-116); Anion Gap 9 (5-15); BUN/Creatinine Ratio 10.5 (10.0-20.0); Basophils # (auto) 0 10 ^3/uL (0-0.2); Basophils % (auto) 0.4 % (0.0-2.0); Blood Urea Nitrogen 10 mg/dL (9-23); Calcium 7.9 mg/dL (8.5-10.1); Carbon Dioxide 20 mmol/L (20-30); Chloride 108 mmol/L (98-107); Eosinophils # (auto) 0.1 10 ^3/uL (0-0.8); Eosinophils % (auto) 1.4 % (0.0-7.0); Glucose 123 mg/dL (74-106); Hematocrit 38.2 % (41.0-53.0); Hemoglobin 12.3 g/dL (13.5-17.5); Lymphocytes # (auto) 1.2 10 ^3/uL (0.4-5.4); Lymphocytes % (auto) 20.6 % (10.0-50.0); Mean Corpuscular Hgb Conc. 32.2 g/dL (32.0-36.0); Mean Corpuscular Volume 99.3 fL (80.0-100.0); Monocytes # (auto) 0.7 10 ^3/uL (0-1.3); Monocytes % (auto) 11.9 % (0.0-12.0); Neutrophils # (auto) 3.9 10 ^3/uL (1.6-8.6); Neutrophils % (auto) 65.7 % (37.0-80.0); Potassium 3.2 mmol/L (3.5-5.1); Red Blood Cells 3.85 10^6/uL (4.5-5.90); Red Cell Distribution Width 17.4 % (11.8-14.3); Sodium 137 mmol/L (136-145); White Blood Cell 5.9 10^3/uL (4.4-10.8)
[2023-08-09 07:35] LABS: Albumin 3.2 g/dL (3.2-4.8); Aspartate Aminotransferase 206 U/L (13-40); Bilirubin, Total 0.5 mg/dL (0.2-1.0); Total Protein 5.3 g/dL (5.7-8.2)
[2023-08-09 08:00] VITALS: BP 137/85; PULSE 67; RESP 18; TEMP 98.1; O2SAT 100
[2023-08-09] MEDS: PANTOPRAZOLE 40 MG TAB PO SCH (09:33)
[2023-08-09] MEDS ORDERED: PATIENTS OWN MEDICATION (Omeprazole (Gnp Omeprazole) 1 TAB) PO SCH (10:00)
[2023-08-09] MEDS ORDERED: OXYCODONE W/ ACETAMINOPHEN 5/325MG TABLET PO PRN (11:45)
[2023-08-09 12:00] VITALS: BP 122/76; PULSE 71; RESP 18; TEMP 98.9; O2SAT 99
[2023-08-09] MEDS ORDERED: LOSARTAN POTASSIUM 50 MG TAB PO ONE (12:15)
[2023-08-09] MEDS ORDERED: HCTZ 25 MG TAB PO ONE (12:15)
[2023-08-09] MEDS ORDERED: METOPROLOL TARTRATE 25 MG TAB PO ONE (12:15)
[2023-08-09] MEDS ORDERED: POTASSIUM CHL 20 Meq TABLET PO ONE (12:15)
[2023-08-09] MEDS ORDERED: PANTOPRAZOLE 40 MG TAB PO ONE (12:30)
[2023-08-09] MEDS: ENOXAPARIN SOD 40 MG/0.4 ML SYRINGE SC SCH (12:35)
[2023-08-09] MEDS ORDERED: ACETAMINOPHEN 325 MG TAB PO PRN ×2 (13:45→14:00)
[2023-08-09] MEDS ORDERED: oxyCODONE HCL 5MG TAB PO PRN ×3 (13:45→16:00)
[2023-08-09] MEDS ORDERED: MORPHINE SULFATE INJ 2 MG/ml SYRG IV PRN ×2 (15:30→16:30)
[2023-08-09 16:00] VITALS: BP 115/78; PULSE 68; RESP 16; TEMP 98.1; O2SAT 98
[2023-08-09 20:00] VITALS: RESP 18
[2023-08-09 22:00] VITALS: BP 135/83; PULSE 66; RESP 22; TEMP 97.8; O2SAT 96
[2023-08-09] MEDS: ACETAMINOPHEN 325 MG TAB PO PRN (22:04)
[2023-08-09] MEDS: oxyCODONE HCL 5MG TAB PO PRN (22:04)
[2023-08-09] MEDS: METOPROLOL TARTRATE 25 MG TAB PO SCH (22:04)
[2023-08-10] MEDS: MORPHINE SULFATE INJ 2 MG/ml SYRG IV PRN ×2 (00:26→09:38)
[2023-08-10 05:00] VITALS: BP 120/73; PULSE 54; RESP 20; TEMP 97.7; O2SAT 96
[2023-08-10] MEDS: ACETAMINOPHEN 325 MG TAB PO PRN (05:35)
[2023-08-10] MEDS: oxyCODONE HCL 5MG TAB PO PRN ×2 (05:35→12:43)
[2023-08-10 06:54] LABS: Chloride 105 mmol/L (98-107); Potassium 3.4 mmol/L (3.5-5.1); Sodium 137 mmol/L (136-145)
[2023-08-10 06:55] LABS: Anion Gap 7 (5-15); Calcium 8.4 mg/dL (8.7-10.4); Carbon Dioxide 25 mmol/L (20-30)
[2023-08-10 07:00] LABS: Blood Urea Nitrogen 10 mg/dL (9-23); Glucose 89 mg/dL (74-106); Magnesium 1.5 mg/dL (1.6-2.6)
[2023-08-10 08:00] VITALS: BP 122/81; PULSE 57; RESP 18; TEMP 97.9; O2SAT 97
[2023-08-10] MEDS: ENOXAPARIN SOD 40 MG/0.4 ML SYRINGE SC SCH (09:37)
[2023-08-10] MEDS ORDERED: PANTOPRAZOLE 40 MG TAB PO SCH (10:00)
[2023-08-10] MEDS ORDERED: LOSARTAN POTASSIUM 50 MG TAB PO SCH (10:00)
[2023-08-10] MEDS: METOPROLOL TARTRATE 25 MG TAB PO SCH (10:00)
[2023-08-10] MEDS ORDERED: HCTZ 25 MG TAB PO SCH (10:00)
[2023-08-10 12:00] VITALS: BP 137/83; PULSE 71; RESP 16; TEMP 97.9; O2SAT 97
[2023-08-10 14:20] VITALS: BP 128/77; PULSE 59
[2023-08-10] MEDS ORDERED: INFLUENZA QUAD 2023-2024 0.5 ML SYRG IM ONE (15:00)
[2023-08-10] MEDS ORDERED: PNEUMOCOCCAL VACC POLYS 25 MCG/0.5 ML VIAL IM ONE (15:00)
== END 2023-08-10 15:00 | disposition home or self-care (01) | DRG 605 ==
LOC: ER 10:56 → EDBD 10:56 → OVERFLOW 17:09 → CENTRAL 21:23
PROVIDERS: ADMIT Internal Medicine Pulmonary Disease; ATTEND Student in an Organized Health Care Education/Training Program
DX: S80.01XA Contusion of right knee, initial encounter (principal); G89.4 Chronic pain syndrome; F10.10 Alcohol abuse, uncomplicated; K21.9 Gastro-esophageal reflux disease without esophagitis; Z96.641 Presence of right artificial hip joint; R74.8 Abnormal levels of other serum enzymes; E87.6 Hypokalemia; Y93.01 Activity, walking, marching and hiking; W01.0XXA Fall on same level from slipping, tripping and stumbling without subsequent striking against object, initial encounter; R74.01 Elevation of levels of liver transaminase levels; M25.562 Pain in left knee; D64.9 Anemia, unspecified; I10 Essential (primary) hypertension; Z83.3 Family history of diabetes mellitus; Z86.73 Personal history of transient ischemic attack (TIA), and cerebral infarction without residual deficits; Y92.89 Other specified places as the place of occurrence of the external cause; Y99.8 Other external cause status
CPT/HCPCS: 36415; 71045; 72192; 73562; 73721; 80048; 80053; 80307; 81001; 83735; 84484; 85025; 86706; 93005; G0378; J2405